=== PATIENT | female | born 1970 | race Caucasian/White ===

== ENCOUNTER 2021-11-09 16:29 | Outpatient (CLI) | payer OTHER, SELFPAY ==
[2021-11-09 18:40] LABS: T3 Total - Triiodothyronine 1.33 ng/mL (0.6-1.81)
[2021-11-09 18:53] LABS: ALB/GLOB Ratio 0.9 RATIO (0.9-2.4); AST(SGOT) 16 U/L (15-37); Alanine Aminotransfer ALT/SGPT 22 U/L (13-56); Albumin, Serum 3.7 g/dL (3.2-5.0); Alkaline Phosphatase 104 U/L (45-117); Anion Gap 10 (5-15); BUN 11 mg/dL (7-18); BUN/Creat Ratio 11.7 RATIO (10-20); Calcium,Total 8.6 mg/dL (8.5-10.1); Chloride 104 mmol/L (98-107); Creatinine, Serum 0.94 mg/dL (0.55-1.02); EST Glomerular Filtration Rate 66 mL/min (>60); Est Glom Filt Rate - Afr Amer 80 mL/min (>60); Globulin 4.2 g/dL (2.2-4.2); Glucose 71 mg/dL (74-106); Potassium 3.4 mmol/L (3.5-5.1); Protein, Total 7.9 g/dL (6.4-8.2); Sodium Level 139 mmol/L (136-145); T4 Free Direct 0.92 ng/dL (0.76-1.46); T4 Total, Thyroxin 9.5 ug/dL (4.8-13.9); Thyroid Stim Hormone (TSH) 2.71 uIU/mL (0.358-3.74)
[2021-11-10 07:46] LABS: PTHIN 88.3 pg/mL (18.4-80.1)
[2021-11-11 16:05] LABS: Thyroid Peroxidase AB 79 IU/mL (0-34)
== END 2021-11-09 23:59 | disposition home or self-care (01) ==
PROVIDERS: Referring Provider Dermatology Pediatric Dermatology; Visit Provider Dermatology Pediatric Dermatology
DX: L80 Vitiligo (principal); G90.09 Other idiopathic peripheral autonomic neuropathy; G90.512 Complex regional pain syndrome I of left upper limb; G90.50 Complex regional pain syndrome I, unspecified
CPT/HCPCS: 36415; 80053; 83970; 84436; 84439; 84443; 84480; 86376